=== PATIENT | female | born 2000 | race Caucasian/White ===

== ENCOUNTER 2025-03-16 09:31 | Outpatient (CLI) | payer OTHER, SELFPAY ==
--- OUTSIDE RECORDS SUMMARY | 2025-03-16 09:58 | XMS_ITS | Patient Health Record ---
Author Organization [facility] Address [address] [place] [address] Care Team Providers Care Desk Assistant Name Role Phone HILDA DUQUE Unavailable [phone] LINACALLIE Unavailable [phone] Allergies No Known Allergies Results Component Value Reference Range Notes Urinalysis Reviewed date:07/20/2024 02:45:10 PM Interpretation: Performing Lab: Notes/Report: MIKE 1+ NIT - URO - PRO - pH 6.0 BLO +- SG 1.020 KEG - LISA - GLU - PHQ Reviewed date:07/20/2024 01:59:29 PM Interpretation: Performing Lab: Notes/Report: Results 3 Vaso Scan Reviewed date:07/20/2024 02:45:14 PM Interpretation: Performing Lab: Notes/Report: Results 1 Test/URINE Reviewed date:07/20/2024 02:45:06 PM Interpretation: Performing Lab: Notes/Report: Negative Negative LIPID PANEL WITH RATIOS Reviewed date:07/31/2024 07:37:53 PM Interpretation:TNP Performing Lab:[facility], [facility][id number] Fredy Correia, [id number] Ruddy Stallworth MD Notes/Report: 0 0 CHOLESTEROL, TOTAL TNP No specimen received. TEST NOT PERFORMED HDL CHOLESTEROL TNP TEST NOT PERFORMED No specimen received. TRIGLYCERIDES TNP TEST NOT PERFORMED No specimen received. LDL-CHOLESTEROL TNP TEST NOT PERFORMED No specimen received. CHOL/HDLC RATIO TNP TEST NOT PERFORMED No specimen received. LDL/HDL RATIO TNP TEST NOT PERFORMED No specimen received. NON HDL CHOLESTEROL TNP TEST NOT PERFORMED No specimen received. SUREPATH PAP RFX HPV mRNA E6 /E7, GC/CT/TV -51228 AND 64089 Reviewed date:07/27/2024 02:19:12 PM Interpretation:Abnormal Performing Lab: Notes/Report: Abnormal COMPREHENSIVE METABOLIC PANE L Reviewed date:07/31/2024 07:37:43 PM Interpretation:TNP Performing Lab:[facility]BLE, [id number] Ruddy Stallworth MD Notes/Report: 0 0 GLUCOSE TNP TEST NOT PERFORMED No specimen received. CULTURE, URINE, ROUTINE Reviewed date:07/29/2024 09:51:12 AM Interpretation:Normal Performing Lab:[facility] [id number] Ruddy Stallworth MD Notes/Report: 0 0 CULTURE, URINE, ROUTINE SEE NOTE CULTURE, URINE, ROUTINE Micro Number: [id number] Test Status: Final Specimen Source: Bladder Specimen Quality: Adequate Result: No Growth DRUG MONITORING TEMPLATE Reviewed date:10/21/2024 08:54:10 AM Interpretation: Performing Lab:[facility] [id number] Ruddy Stallworth MD Notes/Report: 0 Notes and Comments This drug testing is for medical treatment only. Analysis was performed as non-forensic testing and these results should be used only by healthcare providers to render diagnosis or treatment, or to monitor progress of medical conditions. LDT Notes: Confirmation tests were developed and their analytical performance characteristics have been determined by [facility]. It has not been cleared or approved by the FDA. This assay has been validated pursuant to the CLIA regulations and is used for clinical purposes. Healthcare Providers needing Interpretation assistance, please contact us at [phone] ( ) M-F, 8am to 10pm EST Urinalysis Reviewed date:10/18/2024 12:23:49 PM Interpretation: Performing Lab: Notes/Report: MIKE - NIT - URO - PRO - pH 7.0 BLO - SG 1.010 KEG - LISA - GLU - Test/URINE Reviewed date:10/18/2024 11:18:54 AM Interpretation: Performing Lab: Notes/Report: Positive Positive CULTURE, URINE, ROUTINE Reviewed date:10/20/2024 09:44:48 AM Interpretation: Performing Lab:[facility]-[id number] Ruddy Stallworth MD Notes/Report: 0 CULTURE, URINE, ROUTINE SEE NOTE CULTURE, URINE, ROUTINE Micro Number: [id number] Test Status: Final Specimen Source: Bladder Specimen Quality: Adequate Result: No Growth Leukorrhea Panel (Ngon Ctrac h Tvag Mgen) Reviewed date:10/21/2024 08:54:10 AM Interpretation: Performing Lab:[facility], [address] [place] [address], Phone - , Director - Rodney Calderón M.D. Notes/Report: intervals for the tests reported are available from the laboratory upon request. analysis occurs above cut-off levels established by the laboratory. Pertinent reference amplification (real-time PCR), sequence information (Pyrosequencing), and/or sequencing *A positive result is provided for bacteria, virus, parasites, and/or fungal species when PCR determined that such clearance or approval is not necessary. has not been cleared or approved by the U.S. Food and Drug Administration. The FDA has *This test was developed and its performance characteristics determined by the laboratory. It Chlamydia trachomatis by Real-Time PCR (*Reflex to antibiotic resistance by Molecular Analysis) NEGATIVE Swab-1 Vag/Cerv/End Mycoplasma genitalium by Real-Time PCR (Reflex to Azithromycin and Fluoroquinolone Resistance) NEGATIVE Swab-1 Vag/Cerv/End Neisseria gonorrhoeae by Real-Time PCR (Reflex to Antibiotic Resistance by Molecular Analysis) NEGATIVE Swab-1 Vag/Cerv/End Trichomonas vaginalis by Real-Time PCR (Reflex to metronidazole resistance) NEGATIVE Swab-1 Vag/Cer v/End DRUG MONITORING PROFILE 6 (7 [phone]) Reviewed date:10/21/2024 08:54:10 AM Interpretation: Performing Lab:AT, [id number] Notes/Report: 0 Alcohol Metabolites NEGATIVE <500 ng/mL Amphetamines NEGATIVE <500 ng/mL Barbiturates NEGATIVE <300 ng/mL Benzodiazepines NEGATIVE <100 ng/mL Cocaine Metabolite NEGATIVE <150 ng/mL 6 Acetylmorphine NEGATIVE <10 ng/mL Marijuana Metabolite NEGATIVE <20 ng/mL Methadone Metabolite NEGATIVE <100 ng/mL Opiates NEGATIVE <100 ng/mL Oxycodone NEGATIVE <100 ng/mL Phencyclidine NEGATIVE <25 ng/mL Creatinine 55.3 > or = 20.0 mg/dL pH 7.3 4.5-9.0 Oxidant NEGATIVE <200 mcg/mL VITAMIN D,25-OH,TOTAL,IA Reviewed date:10/20/2024 09:44:48 AM Interpretation: Performing Lab:[facility][id number] Fredy Correia, [id number] Ruddy Stlalworth MD Notes/Report: 0 VITAMIN D,25-OH,TOTAL,IA 27 30-100 ng/mL Vitamin D Status 25-OH Vitamin D: Deficiency: <20 ng/mL Insufficiency: 20 - 29 ng/mL Optimal: > or = 30 ng/mL For 25-OH Vitamin D testing on patients on D2-supplementation and patients for whom quantitation of D2 and D3 fractions is required, the QuestAssureD(TM) 25-OH VIT D, (D2,D3), LC/MS/MS is recommended: order code 66670 (patients >2yrs). See Note 1 Note 1 For additional information, please refer to http://[employer]ark/faq/TYQ315 (This link is being provided for informational/ educational purposes only.) ABO GROUP AND RH TYPE Reviewed date:10/20/2024 09:44:48 AM Interpretation: Performing Lab:[facility][id number] Fredy Correia, [id number] Ruddy Stallworth MD Notes/Report: 0 ABO GROUP O RH TYPE RH(D) POSITIVE For additional information, please refer to http://[employer]/faq/QCI914 (This link is being provided for informational/ educational purposes only.) Reason For Referral No Information Medications Medication SIG (Take, Route, Frequency, Duration) Notes Start Date End Date Status Semaglutide Not-Taki ng Ondansetron HCl 8 MG 1 tablet Orally 3 t imes a day as needed for 30 day(s) 04/04/2023 Not- Taking Social History Tobacco Use: Social History Observation Description Date Details (start date - stop date) Never Smoker NA - NA Tobacco Use/Smoking Question Answer Notes Are you a nonsmoker Alcohol Screen (Audit-C) Question Answer Notes Did you have a drink containing alcohol in the p ast year? 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.810) Active confirmed Problem 47787548 Vitamin D deficiency (E55.9) Active confirmed Vital Signs Blood pressure diastolic 65 mm Hg 10/18/2024 Height-cm 157.48 cm 10/18/2024 Weight-kg 65.77 kg 10/18/2024 Height 5'2 in 07/20/2024 Blood pressure systolic 124 mm Hg 10/18/2024 Weight 145.0 lbs 10/18/2024 BMI 26.52 kg/m2 10/18/2024 Encounters Encounter Location Date Provider Diagnosis [facility] [address] [place] [id number] 03/23/2024 CALLIE MILLS Dietary counseling a nd surveillance Z71.3 ; Body mass index [BMI] 25.0-25.9, adult Z68.25 and Exercise counseling Z71.82 [facility] [address] [place] [id number] 07/20/2024 CALLIE MILLS Well woman exam Z01. 419 ; Encounter for screening for depression Z13.31 ; Encounter for screening for cardiovascular disorders Z13.6 ; Encounter for screening for malignant neoplasm of cervix Z12.4 ; Leukocytes in urine R82.998 ; Routine lab draw Z01.89 and Negative test Z32.02 [facility] [address] [place] [id number] 10/18/2024 CALLIE MILLS Positive t est Z32.01 and Vitamin D deficiency E55.9 [facility] [address] [place] [id number] 08/24/2024 HILDA Mejia [facility] [address] [place] [id number] 08/24/2024 HILDA Mejia [facility] [address] [place], [place] [phone] 10/24/2024 HILDA Mejia Md [facility] [address] [place], [place] [phone] 03/23/2024 HILDA Mejia [facility] [address] [place] [address] 07/20/2024 HILDA Mejia [facility] [address] [place] [address] 10/18/2024 HILDA DUQUE Assessments Encounter Date Diagnosis (ICD Code) Assessment Notes Treatment Notes Treatment Clinical Notes Section Notes 10/18/2024 Positive test (ICD-10 - Z32.01) Reviewed ACOG plans/education. PNV Continue care in [place] Wants to have Vit D lab with her CPE labs today Medical release for u/s yesterday To sign medical release in [place] for our records [place] sent rx for Zofran with instructions to patient's pharmacy 10/18/2024 Vitamin D deficiency (ICD-10 - E55.9) 07/20/2024 Well woman exam (ICD-10 - Z01.419) 07/20/2024 Encounter for screening for depression (ICD-10 - Z13.31) 03/23/2024 Body mass index [BMI] 25.0-25.9, adult (ICD-10 - Z68.25) Reviewed weight loss goals, BMI goals. Reviewed medication use, actions No return visit needed 07/20/2024 Encounter for screening for cardiovascular disorders (ICD-10 - Z13.6) 03/23/2024 Dietary counseling and surveillance (ICD-10 - Z71.3) Reviewed dietary changes. Reviewed normal BMI range 18-25. Reviewed desired weight and BMI. 03/23/2024 Exercise counseling (ICD-10 - Z71.82) Reviewed exercise routine. Reviewed exercise goals. 07/20/2024 Encounter for screening for malignant neoplasm of cervix (ICD-10 - Z12.4) 07/20/2024 Leukocytes in urine (ICD-10 - R82.998) 07/20/2024 Routine lab draw (ICD-10 - Z01.89) 07/20/2024 Negative test (ICD-10 - Z32.02) 03/23/2024 Other 07/20/2024 Other Reviewed SBE. Pap obtained. Reviewed Vasoscan and PHQ. Plan Of Treatment No Information Insurance Providers Payer Name Payer Address Payer Phone Subscriber Number Group Number Insured Name Patient Relationship to Insured Coverage Start Date Coverage End Date [employer] [address] [place] [address] [id number] Roxy, Pham Self - patient is the insured 2023 Medications Administered Medication Instructions Date of Administration Dosage Notes WARREN Ultraburn 03/26/2023 1.0 mg WARREN Ultraburn 04/25/2023 1 mL WARREN Ultraburn 06/17/2023 1 mL WARREN Ultraburn 07/03/2023 1 mL WARREN Ultraburn 07/18/2023 1 mL WARREN Ultraburn 08/15/2023 1 mL WARREN Ultraburn 09/14/2023 1 mL WARREN Ultraburn 12/05/2023 1 mg WARREN Ultraburn 01/27/2024 1 mL Semaglutide 07/03/2023 1.5 mg Semaglutide 07/18/2023 1.5 mg Semaglutide 08/15/2023 1.5 mg Semaglutide 09/14/2023 1.5 mg Semaglutide 10/12/2023 1.5 mg Semaglutide 12/05/2023 1.0 mg Semaglutide 01/27/2024 0.5 mg Semaglutide/B12 03/26/2023 0.5 mg Semaglutide/B12 04/25/2023 1 mg Semaglutide/B12 05/22/2023 1 mg Semaglutide/B12 06/17/2023 1.5 mg
--- OUTSIDE RECORDS SUMMARY | 2025-03-16 09:58 | XMS_ITS | Continuity of Care Document ---
Author Organization [facility] Address [address] [place] [address] Phone Care Team Providers Care Tank Wagon Driver Name Role Phone Unavailable Unavailable Unavailable Procedures Procedure Date Periapical first film Amalgam one surface Pulp cap indirect Sedative Filling Periapical first film Oral hygiene instruction Topical fluor w/o prophy chi Periodic oral evaluation Dental prophylaxis child Dental bitewings two films Oral hygiene instruction Comprehensve oral evaluation Topical fluor w/o prophy chi Dental prophylaxis child OFFICE/OUTPATIENT VISIT, EST Oral hygiene instruction Topical fluor w/o prophy chi Dental bitewings two films Comprehensve oral evaluation Advance Directives Directive Yes / No Effective Date File Name No Information Encounters Encounter Description Practice Location Reason(s) For Visit Diagnoses Date Provider Providers Copied on Encounter [employer] Display System [facility] , [address], [place], [place], [address], [place] tel:[phone] Historic Immunization Location No Information 9 No Information [employer] Display [employer] [facility] , [address], [place], [place], [address], [place] tel:[phone] [facility]ATION 9 No Information [facility] , [address], [place], [place], [address], tel:[phone] [facility] 9 [facility] [address], [place], [place], [address], tel:[phone] [facility] [place] DENTAL EXAMINATION 8 No Information [facility] , [address], [place], [place], [address], [place] tel:[phone] [facility] [place] DENTAL EXAMINATION 7 No Information OFFICE/OUTPAT IENT VISIT, EST [facility] , [address], [place], [place], [address], [place] tel:[phone] [facility] [address] Jose Hernandez. [address], [place], [place], [address], . tel:[phone] [employer] Display System [facility] , [address], [place], [place], [address], tel:[phone] [facility] [place] DENTAL EXAMINATION 6 No Information Family History Family Member Type Diagnosis Age At Onset No Information Immunizations Vaccine Date Status Comments VARICELLA VIRUS VACCINE, JESS E, FOR SUBCUTANEOUS USE administered Source: New Immuniz ation Record Payers Payer name Insurance type Covered constitution party ID Authoriza tion(s) No Information Social History Type Description Quantity Date Captured Comments Sex Female Smoking Status No Information Chief Complaint And Reason For Visit No Information Reason For Referral Reason For Referral No Information History Of Present Illness Encounter Date Complaint History Of Prese nt Illness No Information Functional Status Date Functional Assessmen t No Information Instructions Date Instruction Additional Infor mation No Information Assessments Type Assessment Date No Information Patient Care Teams Name Effective Dates (start - stop) Status Members No Information
[2025-03-16 11:01] LABS: Basophils Absolute Auto 0.1 K/mm3 (0.0-0.1); Basophils Percent Auto 0.6 % (0.2-1.2); Eosinophils Absolute Auto 0.1 K/mm3 (0-0.3); Eosinophils Percent Auto 0.6 % (0-4.4); Hematocrit 33.1 % (37.0-47.0); Hemoglobin 11.3 g/dL (12.0-15.0); Immature Granulocyte Absolute 0.08 K/mm3 (0.00-0.031); Immature Granulocyte Percent A 0.9 % (0-0.5); Lymphocytes Absolute Auto 1.23 K/mm3 (0.9-3.2); Lymphocytes Percent Auto 14.5 % (18.3-44.2); Mean Corpuscular HGB Conc 34.1 g/dl (32-36); Mean Corpuscular Hemoglobin 31.4 pg (26-34); Mean Corpuscular Volume 91.9 fl (80-100); Mean Platelet Volume 9.1 fl (7.4-10.4); Monocytes Absolute Auto 0.7 K/mm3 (0.1-0.6); Monocytes Percent Auto 7.8 % (2.6-8.5); Neutrophils Absolute Auto 6.4 K/mm3 (1.3-6.7); Neutrophils Percent Auto 75.6 % (45.5-73.1); Platelet Count Result 228 k/mm3 (150-375); Red Cell Distribution Width 12.5 % (11.5-14.5); White Blood Count 8.5 K/mm3 (4.5-10.0)
[2025-03-16 11:12] LABS: Glucose 1 Hour PP 50gm Dose 120 mg/dL
[2025-03-16 11:40] LABS: Syphilis IgG/IgM Antibody Non-Reactive (Nonreactive)
[2025-03-16 11:56] LABS: HIV 1/2 Ab P24 Ag Result Negative (Negative)
== END 2025-03-16 09:32 | disposition home or self-care (01) ==
LOC: ANHLAB 09:32
PROVIDERS: Visit Provider Obstetrics & Gynecology
DX: Z34.90 Encounter for supervision of normal pregnancy, unspecified, unspecified trimester (principal)
CPT/HCPCS: 36415; 82947; 85025; 86593; 86703; G0432